=== PATIENT | male | born 1955 | race Caucasian/White ===

== ENCOUNTER 2023-07-13 12:42 | Outpatient (AMB) | payer MEDICARE, SELFPAY ==
--- NOTE | 2023-07-13 12:57 | A.OFFPC_ITS ---
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 Has been out of bp medication for almost a week. Just restarted it. 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 Allergies No Known Allergies Allergy (Verified 07/13/23 13:05) Medication List - Last Reconciled 07/13/23 by Lizett Wade PA-C amlodipine 5 mg PO DAILY lisinopril-hydrochlorothiazide 20-12.5 mg 1 tab PO BID metronidazole 0.75% appl topical DAILY simvastatin 40 mg PO BEDTIME Tobacco use date assessed: 07/13/23 Fall risk assessment: No Falls in past year Last assessed Fall Risk: 07/13/23 Dental Screening Dental Screen Date: 07/13/23 Did you have a dental visit in the last 12 months?: Yes Did you have a dental problem in the last 6 months where you did not have access to dental care?: No Was dental information given to patient?: Patient has dentist HPI MENDER HAND- General visit HPI Details Patient is a 67-year-old male with a significant past medical history of hypertension, hyperlipidemia and ongoing left shoulder pain who presents today for a follow up. He is transferring from [facility] and was last seen by myself in February. He does complain today of right lower leg swelling which started a couple of weeks ago. He states that his son was walking behind him and said that is like looked who is on the right compared to the left. He states it is somewhat painful if he pushes on his calf muscle and his posterior knee. Otherwise, no p ain. No recent trauma, surgery or illness. No family history or personal history of clots. He does not smoke. right leg swelling x 2 weeks. He states it feels tight. 51 cm on right left 45 cm CV: bp today is 138/84 and is on amlodipine 5 mg and hydrochlorothiazide/lisinopril 12.5 mg/20 mg twice a day. 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 Denies any chest pain or shortness a breath. His cholesterol has been well managed with simvastatin 40 mg. Musculoskeletal: Very frustrated with his ongoing left shoulder pain. He wants to be cleared to go back to work but his surgeon from [facility] told him that he can not lift more than 10 lb. His shoulder repair was about a year ago and since then he has been on [employer]. He states that this is hard for him financially. He also reports that they are discussing replacing his right knee. Derm: Rosacea as well-controlled with metronidazole cream Colonoscopy: Overdue AAA screen: Reports having this done at [facility], no results today. PSA: Up-to-date. Due in 6 months [facility] Medical History (Updated 07/13/23 @ 14:02 by Lizett Wade PA-C) Pain and swelling of right lower leg Severe obesity HTN (hypertension) Hypercholesterolemia Surgical History (Updated 07/13/23 @ 13:13 by Gillian Thompson CMA) History of knee surgery Family History (Updated 07/13/23 @ 13:12 by Gillian Thompson CMA) Mother Diabetes Social History (Updated 07/13/23 @ 13:11 by Gillian Thompson CMA) Housing: Other (mobile home) Patient Tobacco Use Status: Former Tobacco user Cigarette Packs Per Day: 1 Years Smoked: 25 e-Cigarette/Vaping Use: Never Used Second Hand Smoke Exposure: Yes service: No Current occupational status: other (Out on worku.sit comp) Cognitive needs: No Hearing needs: No Vision needs: No Questionnaire PHQ-9 Over the last 2 weeks, how often have you been bothered by any of the following problems? 1. Little interest or pleasure in doing things: not at all 2. Feeling down, depressed, or hopeless: several days 3. Trouble falling or staying asleep, or sleeping too much: several days 4. Feeling tired or having little energy: several days 5. Poor appetite or overeating: more than half the days 6. Feeling bad about yourself - or that you are a failure or have let yourself or your family down: several days 7. Trouble concentrating on things, such as reading the newspaper or watching television: not at all 8. Moving or speaking so slowly that other people could have noticed. Or the opposite - being so fidgety or restless that you have been moving around a lot more than usual: not at all 9. Thoughts that you would be better off or of hurting yourself in some way: not at all Total score: 6 Depression Screening Interpretation: Positive (Reports this is because he is currently out of work.) Depression Screening Follow-up: Follow-up Visit Requested and Declines treatment Depression Screening Done: Yes 89718 - PHQ-9 Billing: Yes Source: Developed by Drs. Terry Palm, Seema Caba, Kana Prasad and colleagues, with an educational wilfredo from [employer]. Thrive Questionnaire Date Thrive assessed: 07/13/23 I am a: Patient What is your living situation today?: I have a steady place to live Within the past 12 months, did the food you bought not last and you didn't have the money to get more?: Sometimes True Within the past 12 months, did you worry whether your food would run out before you got money to buy more?: Sometimes True Do you have trouble paying for medicines?: No Do you have trouble getting transportation to medical appointments?: No Do you have trouble paying your heating and electricity bill?: Yes Do you have trouble taking care of your child, family member or friend?: No Do you have trouble with day-to-day activities such as bathing, preparing meals, shopping, managing finances, etc.?: No Are you currently unemployed and looking for a job?: No Are you interested in more education?: No Please select the resources that you would like help with: None Currently or been in a relationship where the following occur: no concerns reported THRIVE Score: 3 AUDIT C Alcohol Use Questionnaire (AUDIT-C) 1. How often do you have a drink containing alcohol?: 2-3 times a week 2. How many drinks containing alcohol do you have on a typical day when you are drinking?: 1 or 2 3. How often do you have six or more drinks on one occasion?: Monthly Total Score: 5 Score Reviewed/Action Taken: Yes MAYELA-7 AMB Questionnaire MAYELA-7 Date MAYELA - 7 assessed: 07/13/23 Feeling nervous, anxious, or on edge: 2 = More than half the days Not being able to stop or control worryin = Several days Worrying too much about different things: 3 = Nearly every day Trouble relaxin = More than half the days Being so restless that it is hard to sit still: 3 = Nearly every day Becoming easily annoyed or irritable: 3 = Nearly every day Feeling afraid as if something awful might happen: 2 = More than half the days Total MAYELA-7 score (0-4 normal; 5-9 mild; 10-14 moderate; 15-21 severe): 16 Source: Developed by Drs. Terry Palm, Seema Caba, Kana Prasad and colleagues, with an educational wilfredo from [employer]. MAYELA-7 Assessment Billing MAYELA-7 Assessment Tool: MAYELA-7 Assessment 10757 Physical exam (Primary Care) Vital Signs: Last Vital Signs Temp 98.4 F 07/13/23 13:14 Pulse 81 07/13/23 13:14 Resp 16 07/13/23 13:14 BP 138/84 07/13/23 13:18 Pulse Ox 98 07/13/23 13:14 Oxygen Delivery Method Room Air 07/13/23 13:14 BMI result Body Mass Index 45.7 BMI Assessment/Plan discussion: High BMI High, discussed plan: lifestyle, weight reduction, dietary, physical activity and alcohol moderation Tobacco/Smoking Status: Tobacco use Status Tobacco use date assessed 07/13/23 07/13/23 13:18 Patient Tobacco Use Status Former Tobacco user 07/13/23 13:18 e-Cigarette/Vaping Use Never Used 07/13/23 13:18 PHQ-9: PHQ-9 Score PHQ-9: Total score 6 07/13/23 13:18 Depression Screening Interpretation: Positive (Reports this is because he is currently out of work.) Depression Screening Follow-up: Follow-up Visit Requested and Declines treatment Thrive Assessment: Date of Thrive Assessment Date Thrive assessed 07/13/23 07/13/23 13:18 Currently or been in a relationship where the following occur: no concerns reported Const Orientation/consciousness: patient oriented x3 HENMT Ears: hearing grossly normal bilaterally Neck Thyroid: Thyroid normal Lymphatic: no lymphadenopathy noted Resp Auscultation: clear to auscultation bilaterally Cardio Rate: regular rate Rhythm: regular rhythm Heart sounds: S1 normal heart sound present and S2 normal heart sound present GI Inspection: Yes normal to inspection Palpation (GI): Soft to palpation and Other GI palpation findings present (nontender, no cva tenderness) Auscultation: normoactive bowel sounds Rectal Exam - Male: Yes deferred Skin General skin exam: no rashes or lesions noted Neuro General: patient oriented x3, gait normal and no focal motor deficits Extrem Other: The right lower leg is 51 cm in circumference. There is tenderness to palpation over the right calf. There is increased erythema noted over the right lower leg that does juju. It is nontender. No increased warmth when compared to the left. The left calf is 45 cm. Nontender. Full range of motion of both extremities. The right posterior knee is tender to palpation. No ligamentous laxity noted. No discomfort with valgus or varus stress. Declined to take shoes off for exam Assessment and Plan Assessment & Plan (1) HTN (hypertension): Code(s): I10 - Essential (primary) hypertension Qualifiers: Hypertension type: primary hypertension Qualified Code(s): I10 - Essential (primary) hypertension Plan: We will continue current regimen today and refill. Patient reports having labs with Dr. Pollack's about a month ago that were WNL. I will have him follow up in 3-4 months. Sooner if needed. He is going to monitor his blood pressures at home. We did discuss diet changes. (2) Hypercholesterolemia: Code(s): E78.00 - Pure hypercholesterolemia, unspecified Plan: Continue simvastatin. We will monitor lipids and LFTs. (3) Pain and swelling of right lower leg: Code(s): M79.661 - Pain in right lower leg; M79.89 - Other specified soft tissue disorders Plan: Stat ultrasound ordered. Patient will be contacted later today with an appointment time and date. (4) Anxiety with depression: Code(s): F41.8 - Other specified anxiety disorders Plan: Believes that this is situational does not currently wish to treat this. We will follow up in a few months. He will follow up sooner if anything changes. Referral for colonoscopy placed. Advised patient to complete forms for records. Orders: Orders TSH reflex Free T4 Today E78.00 - Pure hypercholesterolemia, unspecified, I10 - Essential (primary) hypertension, M79.661 - Pain in right lower leg, M79.89 - Other specified soft tissue disorders US venous duplex LE RT Today M79.661 - Pain in right lower leg, M79.89 - Other specified soft tissue disorders Complete Blood Count Auto Diff Today E78.00 - Pure hypercholesterolemia, unspecified, I10 - Essential (primary) hypertension, M79.661 - Pain in right lower leg, M79.89 - Other specified soft tissue disorders Comprehensive Met. Panel Today E78.00 - Pure hypercholesterolemia, unspecified, I10 - Essential (primary) hypertension, M79.661 - Pain in right lower leg, M79.89 - Other specified soft tissue disorders Lipid Panel Today E78.00 - Pure hypercholesterolemia, unspecified, I10 - Essential (primary) hypertension, M79.661 - Pain in right lower leg, M79.89 - Other specified soft tissue disorders PSA, Ultra Sensitive Today E78.00 - Pure hypercholesterolemia, unspecified, I10 - Essential (primary) hypertension, M79.661 - Pain in right lower leg, M79.89 - Other specified soft tissue disorders, R06.09 - Other forms of dyspnea Referrals Gastroenterology Referral Z12.11 - Encounter for screening for malignant neoplasm of colon Coding Level of Care Code Est Pt Level 4 (68549) Complex EM visit Add On G2211 Diagnoses Primary hypertension I10 Hypertension type: primary hypertension Hypercholesterolemia E78.00 Pain and swelling of right lower leg M79.661; M79.89 Anxiety with depression F41.8 Additional Codes MAYELA-7 Assessment Billing - MAYELA-7 Assessment Tool: MAYELA-7 Assessment 13907 ([id number])
[2023-07-13 13:14] VITALS: BP 154/82; PULSE 81; RESP 16; TEMP 36.9; O2SAT 98; BMI 45.7
[2023-07-13 13:18] VITALS: BP 138/84
== END 2023-07-13 13:52 | disposition home or self-care (01) ==
PROVIDERS: PCP Physician Assistant; Visit Provider Physician Assistant
DX: I10 Essential (primary) hypertension (principal); E78.00 Pure hypercholesterolemia, unspecified; M79.661 Pain in right lower leg; M79.89 Other specified soft tissue disorders; F41.8 Other specified anxiety disorders
CPT/HCPCS: 99214; G2211

== ENCOUNTER 2023-07-15 09:01 | Outpatient (REF) | payer MEDICARE, SELFPAY ==
--- NOTE | ~2023-07-15 | US_ITS ---
EXAMINATION: US VENOUS ULTRASOUND WITH DOPPLER LOWER EXTREMITY, RIGHT CLINICAL INFORMATION: Right lower extremity pain. COMPARISON: None available. TECHNIQUE: Ultrasound of the deep veins is performed from the hip to the calf with compression sonography and color and pulse Doppler assessment. Spectral analysis with color-flow imaging is performed. Technically limited study due to edema and patient's body habitus. FINDINGS: There is normal venous compression and respiratory variation and augmented flow. The visualized common femoral vein, superficial femoral vein, profunda femoral vein, popliteal vein, and the imaged trifurcation region shows no evidence of deep venous thrombosis. If the patient's symptoms persist, followup ultrasound in 5 days 7 days might be of value to exclude proximal propagation from a non-visualized calf vein. US/US venous duplex LE RT IMPRESSION: No DVT demonstrated in the right lower extremity.
== END 2023-07-15 09:02 | disposition home or self-care (01) ==
LOC: HO.US 09:01
PROVIDERS: PCP Physician Assistant; Visit Provider Physician Assistant
DX: M79.661 Pain in right lower leg (principal); M79.89 Other specified soft tissue disorders
CPT/HCPCS: 93971

== ENCOUNTER 2023-12-29 08:42 | Outpatient (REF) | payer MEDICARE, SELFPAY ==
[2023-12-29 11:10] LABS: MANUAL DIFF FLAG NO
[2023-12-29 11:27] LABS: Basophils Absolute Auto 0.1 X10*3/uL (0.0-0.2); Basophils Percent Auto 1.2 % (0-2); Eosinophils Absolute Auto 0.1 X10*3/uL (0.0-0.4); Eosinophils Percent Auto 1.9 % (0-4); Hematocrit 43.4 % (42.0-52.0); Hemoglobin 14.1 g/dl (14.0-18.0); Imm Gran Abs Auto 0.03 X10*3/uL (0.00-0.03); Imm Gran Pct Auto 0.5 % (0.0-0.4); Lymphocytes Absolute Auto 1.8 X10*3/uL (1.2-4.9); Lymphocytes Percent Auto 27.6 % (20-40); Mean Corpuscular HGB Conc 32.5 g/dl (31.0-36.0); Mean Corpuscular Hemoglobin 29.3 pg (27.0-33.0); Mean Corpuscular Volume 90.2 fL (80.0-98.0); Mean Platelet Volume 10.1 fL (9.4-12.4); Monocytes Absolute Auto 0.6 X10*3/uL (0.1-1.2); Monocytes Percent Auto 8.7 % (2-11); Neutrophils Absolute Auto 3.9 x10*3/uL (2.0-8.3); Neutrophils Percent Auto 60.1 % (45-73); Platelet Count 275 X10*3/uL (160-400); Red Blood Count 4.81 X10*6/uL (4.60-5.80); Red Cell Distribution Width 12.8 % (11.0-16.0); White Blood Count 6.4 X10*3/uL (4.8-10.8)
[2023-12-29 11:48] LABS: Estimated Average Glucose 111 mg/dL; Hemoglobin A1C 138.9677 umol/L; Hemoglobin A1c % 5.5 % (<6.0); Total Hemoglobin (HGBA1C) 3780.8486 umol/L
[2023-12-29 12:05] LABS: Alanine Aminotransferase 31 U/L (0-40); Albumin Level 3.8 g/dL (3.5-5.0); Alkaline Phosphatase 86 U/L (39-117); Anion Gap 11 (12-20); Aspartate Amino Transferase 31 U/L (5-37); Bilirubin Total 0.4 mg/dL (0.0-1.0); Blood Urea Nitrogen 26 mg/dL (9-16); Calcium 9.1 mg/dL (8.4-10.2); Carbon Dioxide 30 mmol/L (22-29); Chloride 101 mmol/L (96-108); Cholesterol 162 mg/dL (<200); Estimated Glomerular Filt Rate > 60; Glucose Random 101 mg/dL (60-115); HDL Cholesterol 31 mg/dL (>40); LDL Cholesterol Calculated 107 mg/dL (<100); Potassium 4.4 mmol/L (3.3-5.1); Sodium 138 mmol/L (135-145); Total Protein 7.2 g/dL (6.5-8.0); Triglycerides 121 mg/dL (<150)
[2023-12-29 12:22] LABS: TSH reflex Free T4 0.82 uIU/mL (0.32-4.0)
[2023-12-29 14:23] LABS: Appearance Urine Clear; Color Urine Yellow; Glucose Urine UA Negative (Negative); Leukocyte Esterase Urine Negative (Negative); Nitrite Urine Negative (Negative); Specific Gravity - Urine 1.015 (1.005-1.025); Urine Blood Negative (Negative); Urine Ketones Negative (Negative); Urine Protein Negative (Neg-Trace)
== END 2023-12-29 08:43 | disposition home or self-care (01) ==
LOC: HO.WFDLDS 08:42
PROVIDERS: Visit Provider Physician Assistant
DX: E78.00 Pure hypercholesterolemia, unspecified (principal); I10 Essential (primary) hypertension; M79.661 Pain in right lower leg; M79.89 Other specified soft tissue disorders; N39.0 Urinary tract infection, site not specified; Z13.220 Encounter for screening for lipoid disorders; Z12.5 Encounter for screening for malignant neoplasm of prostate; Z13.1 Encounter for screening for diabetes mellitus
CPT/HCPCS: 36415; 80053; 80061; 81003; 83036; 84153; 84443; 85025; 99212

== ENCOUNTER 2023-12-29 10:03 | Outpatient (AMB) | payer MEDICARE, SELFPAY ==
--- NOTE | 2023-12-29 10:12 | MHC.PC.OV ---
Vital Signs 12/29/23 10:14 Height 5 ft 8 in Weight 290 lb BMI 44.1 BP 108/68 Blood Pressure Location Rt brachial Position Sitting Pulse 69 Pulse Source Pulse Oximeter Pulse Oximetry (%) 93 Oxygen Delivery Method Room Air Intake Visit Reasons: BP check Intake Note: Follow up htn. Went to ER on 12/18 for enlarged testicle. Right knee pain. Need Simvastatin refilled. Allergies No Known Allergies Allergy (Verified 07/13/23 13:05) Medication List - Last Reconciled 12/29/23 by Lizett Wade PA-C amlodipine 5 mg PO DAILY lisinopril-hydrochlorothiazide 20-12.5 mg 1 tab PO BID simvastatin 40 mg PO BEDTIME Tobacco use date assessed: 07/13/23 Dental Screening Dental Screen Date: 07/13/23 HPI BP check HPI Details Patient is a 67-year-old male with a significant past medical history of hypertension, hyperlipidemia and ongoing left shoulder pain who presents today initially for a blood pressure follow up but admits that on 12/18 he was diagnosed with a complicated UTI, abnormal CT of the pelvis and LIONEL. He was supposed to be admitted but signed AMA and was discharged on Levaquin and told to follow up outpatient to have his kidney function rechecked and get a dedicated scrotal ultrasound for the abnormality on CT. Since the hospital he has been feeling a lot better but his right testicle is still enlarged. He states it is no longer red or tender. No dysuria, increased urinary frequency or urgency. CV: bp today is 108/68 and is on amlodipine 5 mg and hydrochlorothiazide/lisinopril 12.5 mg/20 mg twice a day. His cholesterol has been well managed with simvastatin 40 mg.. Derm: Rosacea as well-controlled with metronidazole cream Colonoscopy: Overdue-was referred and scheduled in Feb 2024 AAA screen: Reports having this done at [facility], no results today. PSA: Due now [facility] Medical History (Updated 12/29/23 @ 10:44 by Lizett Wade PA-C) Pain and swelling of right lower leg Severe obesity HTN (hypertension) Hypercholesterolemia Surgical History (Updated 07/13/23 @ 13:13 by Gillian Thompson CMA) History of knee surgery Family History (Updated 07/13/23 @ 13:12 by Gillian Thompson CMA) Mother Diabetes Social History (Updated 07/13/23 @ 13:11 by LINDA Hauser Housing: Other (mobile home) Patient Tobacco Use Status: Former Tobacco user Cigarette Packs Per Day: 1 Years Smoked: 25 e-Cigarette/Vaping Use: Never Used Second Hand Smoke Exposure: Yes service: No Current occupational status: other (Out on workmans comp) Cognitive needs: No Hearing needs: No Vision needs: No Questionnaire PHQ-9 Over the last 2 weeks, how often have you been bothered by any of the following problems? 1. Little interest or pleasure in doing things: not at all 2. Feeling down, depressed, or hopeless: not at all 3. Trouble falling or staying asleep, or sleeping too much: not at all 4. Feeling tired or having little energy: not at all 5. Poor appetite or overeating: not at all 6. Feeling bad about yourself - or that you are a failure or have let yourself or your family down: not at all 7. Trouble concentrating on things, such as reading the newspaper or watching television: not at all 8. Moving or speaking so slowly that other people could have noticed. Or the opposite - being so fidgety or restless that you have been moving around a lot more than usual: not at all 9. Thoughts that you would be better off or of hurting yourself in some way: not at all Total score: 0 Source: Developed by Drs. Terry Palm, Seema Caba, Kana Prasad and colleagues, with an educational wilfredo from [employer]. Thrive Questionnaire Date Thrive assessed: 12/02/23 Within the past 12 months, did the food you bought not last and you didn't have the money to get more?: Often true Within the past 12 months, did you worry whether your food would run out before you got money to buy more?: Often true Do you have trouble paying for medicines?: Yes Do you have trouble getting transportation to medical appointments?: No Do you have trouble paying your heating and electricity bill?: No Do you have trouble taking care of your child, family member or friend?: No Do you have trouble with day-to-day activities such as bathing, preparing meals, shopping, managing finances, etc.?: No Are you currently unemployed and looking for a job?: No Are you interested in more education?: No Please select the resources that you would like help with: None Currently or been in a relationship where the following occur: I choose not to answer THRIVE Score: 2 MAYELA-7 AMB Questionnaire MAYELA-7 Date MAYELA - 7 assessed: 07/13/23 Source: Developed by Drs. Terry Palm, Seema Caba, Kana Prasad and colleagues, with an educational wilfredo from [employer]. Physical exam (Primary Care) Vital Signs: Last Vital Signs Pulse 69 12/29/23 10:14 BP 108/68 12/29/23 10:14 Pulse Ox 93 12/29/23 10:14 Oxygen Delivery Method Room Air 12/29/23 10:14 BMI result Body Mass Index 44.1 Tobacco/Smoking Status: Tobacco use Status Tobacco use date assessed 07/13/23 12/29/23 10:14 Patient Tobacco Use Status Former Tobacco user 12/29/23 10:14 e-Cigarette/Vaping Use Never Used 12/29/23 10:14 PHQ-9: PHQ-9 Score PHQ-9: Total score 0 12/29/23 10:14 Thrive Assessment: Date of Thrive Assessment Date Thrive assessed 12/02/23 12/29/23 10:14 Currently or been in a relationship where the following occur: I choose not to answer Const Orientation/consciousness: patient oriented x3 HENMT Ears: hearing grossly normal bilaterally Neck Thyroid: Thyroid normal Lymphatic: no lymphadenopathy noted Resp Auscultation: clear to auscultation bilaterally Cardio Rate: regular rate Rhythm: regular rhythm Heart sounds: S1 normal heart sound present and S2 normal heart sound present GI Inspection: Yes normal to inspection Palpation (GI): Soft to palpation and Other GI palpation findings present (nontender, no cva tenderness) Auscultation: normoactive bowel sounds General: Yes no CVA tenderness Back/Spine/Pelvis Back: no CVA tenderness Skin General skin exam: no rashes or lesions noted Neuro General: patient oriented x3, gait normal and no focal motor deficits Coding Level of Care Code Est Pt Level 4 (21352) Complex EM visit Add On G2211 Diagnoses Hypercholesterolemia E78.00 Primary hypertension I10 Hypertension type: primary hypertension Complicated UTI (urinary tract infection) N39.0 Testicular swelling, right N50.89 Assessment & Plan Assessment & Plan (1) Hypercholesterolemia: Code(s): E78.00 - Pure hypercholesterolemia, unspecified Category: Medical Plan: Lipids and LFTs ordered. We will follow up pending test results (2) HTN (hypertension): Code(s): I10 - Essential (primary) hypertension Category: Medical Qualifiers: Hypertension type: primary hypertension Qualified Code(s): I10 - Essential (primary) hypertension Plan: WNL. Continue current regimen (3) Complicated UTI (urinary tract infection): Code(s): N39.0 - Urinary tract infection, site not specified Category: Medical Plan: Currently asymptomatic. Completed Levaquin. Referral to urology. (4) Testicular swelling, right: Code(s): N50.89 - Other specified disorders of the male genital organs Category: Medical Plan: As above. Hydrocele noted on CT scan. Ultrasound ordered. Orders: Orders Hemoglobin A1c Today E78.00 - Pure hypercholesterolemia, unspecified, I10 - Essential (primary) hypertension, N39.0 - Urinary tract infection, site not specified UA CC w/rflx Micro + Cult Today E78.00 - Pure hypercholesterolemia, unspecified, I10 - Essential (primary) hypertension, N39.0 - Urinary tract infection, site not specified, Z13.220 - Encounter for screening for lipoid disorders Prostate Specific Antigen Scr Today E78.00 - Pure hypercholesterolemia, unspecified, I10 - Essential (primary) hypertension, N39.0 - Urinary tract infection, site not specified, Z01.89 - Encounter for other specified special examinations US scrotum Today N50.89 - Other specified disorders of the male genital organs Referrals Urology Referral N39.0 - Urinary tract infection, site not specified, N50.89 - Other specified disorders of the male genital organs
[2023-12-29 10:14] VITALS: BP 108/68; PULSE 69; O2SAT 93; BMI 44.1
== END 2023-12-29 13:06 | disposition home or self-care (01) ==
LOC: HO.HMCFM 10:04
PROVIDERS: PCP Physician Assistant; Visit Provider Physician Assistant
DX: E78.00 Pure hypercholesterolemia, unspecified (principal); I10 Essential (primary) hypertension; N39.0 Urinary tract infection, site not specified; N50.89 Other specified disorders of the male genital organs

== ENCOUNTER 2024-03-01 10:33 | Outpatient (REF) | payer MEDICARE, SELFPAY ==
[2024-03-01 16:45] LABS: Urine Cytology See Pathology rpt
== END 2024-03-01 10:34 | disposition home or self-care (01) ==
LOC: HO.LNP 10:33
PROVIDERS: PCP Physician Assistant; Visit Provider Urology
DX: R31.9 Hematuria, unspecified (principal); N39.0 Urinary tract infection, site not specified; Z13.9 Encounter for screening, unspecified; N50.89 Other specified disorders of the male genital organs
CPT/HCPCS: 81003; 87086; 88112; 99202

== ENCOUNTER 2024-03-01 10:33 | Outpatient (AMB) | payer MEDICARE, SELFPAY ==
--- NOTE | 2024-03-01 11:19 | MHC.OFFVIS ---
Intake Visit Reasons: complicated UTI Intake Note: Patient is present for Complicated UTI Blood Thinner: NONE Dietary Tech Required: No Allergies No Known Allergies Allergy (Verified 03/01/24 11:20) HPI Comments Details: hematuria- now gone ed- IV abx US scrotum - 01/24/24 levaquine # 10 renal US--fu office cysto [facility] Medical History Pain and swelling of right lower leg Severe obesity HTN (hypertension) Hypercholesterolemia Surgical History History of knee surgery Family History Mother Diabetes Social History Housing: Other (mobile home) Patient Tobacco Use Status: Former Tobacco user Cigarette Packs Per Day: 1 Years Smoked: 25 e-Cigarette/Vaping Use: Never Used Second Hand Smoke Exposure: Yes service: No Current occupational status: other (Out on workmans comp) Cognitive needs: No Hearing needs: No Vision needs: No Review of Systems Const All systems reviewed & are unremarkable except as noted in HPI and below Reports no additional complaints Eyes Reports no additional complaints ENT Reports no additional complaints Card Reports no additional complaints Resp Reports no additional complaints GI Reports no additional complaints Reports as per HPI Musc Reports no additional complaints Skin/Breast Reports system reviewed and no additional complaints, except as documented Neuro Reports no additional complaints Psych Reports no additional complaints Endo Reports no additional complaints Beck/Lymph Reports no additional complaints Aller/Immun Reports no additional complaints Results AMB Urinalysis, Automated UA Leukoctes 0 Kathia/uL Last Edit by Marie Dunn on 03/01/24 11:23 UA Nitrite Negative Last Edit by Marie Dunn on 03/01/24 11:23 UA Urobilinogen 3.5 mg/dL Last Edit by Marie Dunn on 03/01/24 11:23 UA Protein 6.0 mg/dL Last Edit by Marie Dunn on 03/01/24 11:23 UA pH 0 Last Edit by Marie Dunn on 03/01/24 11:23 UA Blood 0 Brijesh/uL Last Edit by Marie Dunn on 03/01/24 11:23 UA Specific [place] 1.020 Last Edit by Marie Shaun on 03/01/24 11:23 UA Ketone Negative Last Edit by Marie Shaun on 03/01/24 11:23 UA Bilirubin 0 mg/dL Last Edit by Marie Shaun on 03/01/24 11:23 UA Glucose 0 mg/dL Last Edit by Marie Shaun on 03/01/24 11:23 Results Reviewed Results Reviewed: Laboratory Last Values Urine pH (Auto) 0 03/01/24 11:21 Specific [place] (Auto) 1.020 03/01/24 11:21 Urine Protein (Auto) 6.0 mg/dL 03/01/24 11:21 Glucose (UA)(Auto) 0 mg/dL 03/01/24 11:21 Urine Ketones (Auto) Negative 03/01/24 11:21 Urine Blood (Auto) 0 Brijesh/uL 03/01/24 11:21 Urine Nitrite (Auto) Negative 03/01/24 11:21 Urine Bilirubin (Auto) 0 mg/dL 03/01/24 11:21 Urine Urobilinogen (Auto) 3.5 mg/dL 03/01/24 11:21 Leukocyte Esterase (Auto) 0 Kathia/uL 03/01/24 11:21 Assessment & Plan Assessment & Plan (1) Complicated UTI (urinary tract infection): Code(s): N39.0 - Urinary tract infection, site not specified Category: Medical (2) Hematuria: Code(s): R31.9 - Hematuria, unspecified Category: Medical Orders: Orders AMB Urinalysis Automated Today Z13.9 - Encounter for screening, unspecified US renal BI Today N39.0 - Urinary tract infection, site not specified, R31.9 - Hematuria, unspecified Urine Cytology Today R31.9 - Hematuria, unspecified Urine Culture Today N39.0 - Urinary tract infection, site not specified Medications: New levofloxacin 500 mg PO DAILY 10 tabs 0RF Coding Diagnoses Complicated UTI (urinary tract infection) N39.0 Hematuria R31.9
== END 2024-03-01 12:13 | disposition home or self-care (01) ==
PROVIDERS: PCP Physician Assistant; Visit Provider Urology
DX: Z13.9 Encounter for screening, unspecified (principal)

== ENCOUNTER 2024-04-19 13:17 | Outpatient (AMB) | payer MEDICARE, SELFPAY ==
--- NOTE | 2024-04-19 13:29 | A.OFFPC_ITS ---
Vital Signs 04/19/24 13:36 Height 5 ft 8 in Weight 302 lb BMI 45.9 BP 132/58 L Blood Pressure Location Lt brachial Position Sitting Respiration 16 Pulse 78 Pulse Source Pulse Oximeter Pulse Oximetry (%) 97 Oxygen Delivery Method Room Air Intake Visit Reasons: blood work/ultrasound Intake Note: Follow up lab results and ultrasound. Having a kidney ultrasound tomorrow ordered Urology. Continuity Tester Required: No Allergies No Known Allergies Allergy (Verified 04/19/24 13:32) Medication List - Last Reconciled 04/19/24 by Lizett Wade PA-C amlodipine 5 mg PO DAILY levofloxacin 500 mg PO DAILY lisinopril-hydrochlorothiazide 20-12.5 mg 1 tab PO BID simvastatin 40 mg PO BEDTIME Tobacco use date assessed: 07/13/23 Dental Screening Dental Screen Date: 07/13/23 HPI blood work/ultrasound HPI Details History of Present Illness The patient is a 68-year-old male presenting Today for a follow up. He has a significant past medical history of hypertension, hyperlipidemia and recently right testicular swelling. Urology: The patient reports that since a prior visit in December, there has been little progress in addressing his urinary problems. He states that his right testicle has remain enlarged. It is tender at times with compression otherwise is asymptomatic. He expresses frustration with the limited intervention and lack of clarity regarding his condition. The patient describes concerns about a lack of ejaculation and penile retraction, which are associated with persistent swelling of his right testicle. The swelling has been present, with no signs of increase or decrease in size. Earlier, there was an episode of bleeding upon urination, which resolved within a week. He reports no current abdominal pain or other significant symptoms. He is scheduled for an ultrasound tomorrow and on Tuesday has an appointment with Urology again to further discuss this. CV: Blood pressure today in the office is 130/60. He is compliant with his antihypertensive. Cholesterol is managed with simvastatin. No chest pain or shortness on breath. Colonoscopy: Overdue and this has been rescheduled twice now. Unable to go to [facility] due to insurance issues. He has not yet heard about when it was going to be re booked. Health Maintenance - Renal ultrasound scheduled for tomorro w followed by follow-up for interpr etation of results. - Blood pressure management is ongoing w ith current satisfactory levels (130/60 mmHg). - Scheduled for colonoscopy; previous ca ncellations due to provider availability. Social History Review of Systems - Genitourinary: Reports lack of ejacula tion, penile retraction, and history of urinary bleeding (resolved). Physical Exam General: Well developed, well nourished, in no acute distress. Appears stated age. Cardiac: RRR, no murmurs Lungs: clear, equal breath sounds Abdomen: soft, nontender, no CVA tenderness Extremities: no edema Neuro: alert, oriented x3, mood appropriate Plan - The patient will proceed with the ryan l ultrasound tomorrow, results to be discussed on the following Tuesday - Monitoring of blood pressure with cont inued management of hypertension. - Rescheduling and completion of the col onoscopy procedure as part of routine health maintenance. - Continue current medications. Follo w up in 4 months. Labs prior to appointment. - Follow-up appointment in four months o r sooner if further intervention becomes necessary. [facility] Medical History Pain and swelling of right lower leg Severe obesity HTN (hypertension) Hypercholesterolemia Surgical History History of knee surgery Family History Mother Diabetes Social History (Updated 04/19/24 @ 13:39 by Gillian Thompson CMA) Housing: Other (mobile home) Alcohol intake: current Patient Tobacco Use Status: Former Tobacco user Cigarette Packs Per Day: 1 Years Smoked: 25 e-Cigarette/Vaping Use: Never Used Second Hand Smoke Exposure: Yes service: No Current occupational status: other (Out on workmans comp) Cognitive needs: No Hearing needs: No Vision needs: No Questionnaire Thrive Questionnaire Date Thrive assessed: 12/02/23 I am a: Patient What is your living situation today?: I have a steady place to live Within the past 12 months, did the food you bought not last and you didn't have the money to get more?: Never true Within the past 12 months, did you worry whether your food would run out before you got money to buy more?: Never true Do you have trouble paying for medicines?: No Do you have trouble getting transportation to medical appointments?: No Do you have trouble paying your heating and electricity bill?: No Do you have trouble taking care of your child, family member or friend?: No Do you have trouble with day-to-day activities such as bathing, preparing meals, shopping, managing finances, etc.?: No Are you currently unemployed and looking for a job?: No Are you interested in more education?: No Please select the resources that you would like help with: None Currently or been in a relationship where the following occur: No concerns reported THRIVE Score: 0 MAYELA-7 AMB Questionnaire MAYELA-7 Date MAYELA - 7 assessed: 07/13/23 Source: Developed by Drs. Terry Palm, Seema Caba, Kana Prasad and colleagues, with an educational wilfredo from [employer]. Physical exam (Primary Care) Vital Signs: Last Vital Signs Pulse 78 04/19/24 13:36 Resp 16 04/19/24 13:36 BP 132/58 L 04/19/24 13:36 Pulse Ox 97 04/19/24 13:36 Oxygen Delivery Method Room Air 04/19/24 13:36 BMI result Body Mass Index 45.9 Tobacco/Smoking Status: Tobacco use Status Tobacco use date assessed 07/13/23 04/19/24 13:29 Patient Tobacco Use Status Former Tobacco user 04/19/24 13:39 e-Cigarette/Vaping Use Never Used 04/19/24 13:39 Thrive Assessment: Date of Thrive Assessment Date Thrive assessed 12/02/23 04/19/24 13:29 Currently or been in a relationship where the following occur: No concerns reported Coding Level of Care Code Est Pt Level 4 (78709) Complex EM visit Add On G2211 Diagnoses Hypercholesterolemia E78.00 Primary hypertension I10 Hypertension type: primary hypertension Testicular swelling, right N50.89 Assessment & Plan Assessment & Plan (1) Hypercholesterolemia: Code(s): E78.00 - Pure hypercholesterolemia, unspecified Category: Medical (2) HTN (hypertension): Code(s): I10 - Essential (primary) hypertension Category: Medical Qualifiers: Hypertension type: primary hypertension Qualified Code(s): I10 - Essential (primary) hypertension (3) Testicular swelling, right: Code(s): N50.89 - Other specified disorders of the male genital organs Category: Medical Plan . Orders: Orders Complete Blood Count Auto Diff Today E78.00 - Pure hypercholesterolemia, unspecified, I10 - Essential (primary) hypertension, N50.89 - Other specified disorders of the male genital organs Comprehensive [place]. Panel Fast Today E78.00 - Pure hypercholesterolemia, unspecified, I10 - Essential (primary) hypertension, N50.89 - Other specified disorders of the male genital organs Lipid Panel Today E78.00 - Pure hypercholesterolemia, unspecified, I10 - Essential (primary) hypertension, N50.89 - Other specified disorders of the male genital organs TSH reflex Free T4 Today E78.00 - Pure hypercholesterolemia, unspecified, I10 - Essential (primary) hypertension, N50.89 - Other specified disorders of the male genital organs
[2024-04-19 13:36] VITALS: BP 132/58; PULSE 78; RESP 16; O2SAT 97; BMI 45.9
== END 2024-04-19 14:05 | disposition home or self-care (01) ==
PROVIDERS: PCP Physician Assistant; Visit Provider Physician Assistant
DX: E78.00 Pure hypercholesterolemia, unspecified (principal); I10 Essential (primary) hypertension; N50.89 Other specified disorders of the male genital organs

== ENCOUNTER → 2024-04-19 13:17 | Outpatient (BNVA) | payer MEDICARE, SELFPAY | PROVIDERS: PCP Physician Assistant; Visit Provider Physician Assistant | DX: E78.00 Pure hypercholesterolemia, unspecified (principal); I10 Essential (primary) hypertension; N50.89 Other specified disorders of the male genital organs | CPT/HCPCS: 99212 ==

== ENCOUNTER 2024-04-26 09:04 | Outpatient (AMB) | payer MEDICARE, SELFPAY ==
--- NOTE | 2024-04-26 09:24 | MHC.OFFVIS ---
Intake Visit Reasons: cysto/US(set 04/18/24) Intake Note: Patient is present for Cystoscopy/US Urology Medication:NONE Antibiotic Allergy:NONE Blood Thinner:NONE Lot:[id number] Exp:06/01/2026 Bmet Required: No Allergies No Known Allergies Allergy (Verified 04/26/24 09:25) HPI Comments Details: 04/26/24-- 68-year-old male presenting with hematuria and testicular swelling. Approximately four weeks ago, he attended an emergency room visit due to blood in the urine, for which IV antibiotics were administered. No repeat episodes of hematuria have been reported since the initial incident. Swelling of the left testicle continues, without considerable reduction post-antibiotic therapy. Challenges with ejaculation have arisen, marked by reduced semen flow and retraction of the penis. His medical regimen includes medications for hypertension and hyperlipidemia. Further evaluations include a review of recent kidney and bladder ultrasounds to assess underlying causes. Urinary Symptoms Review - Initial hematuria, noted approximately one month ago, resolved following treatment with IV antibiotics. - Presenting with continued testicular swelling, unchanged post-antibiotic therapy. - Ejaculatory changes noted as dribbling without normal force, suggestive of potential prostate enlargement or obstruction. - Penile retraction described, potentially related to testicular swelling. Results - Ultrasound of the kidneys and bladder: No significant findings. - Cystoscopy: Bladder wall thickening observed; no tumors noted. 03/01/24--Will is a 68 year old male seen in the ED with hematuria- states now resolved. Received IV abx in the ED. US scrotum - 01/24/24- findings c/w right orchitis. Pt states swelling is persistent levaquin # 10 renal US--fu office cysto PFSH Medical History Pain and swelling of right lower leg Severe obesity HTN (hypertension) Hypercholesterolemia Surgical History History of knee surgery Family History Mother Diabetes Social History (Updated 04/19/24 @ 13:39 by Gillian Thompson CMA) Housing: Other (mobile home) Alcohol intake: current Patient Tobacco Use Status: Former Tobacco user Cigarette Packs Per Day: 1 Years Smoked: 25 e-Cigarette/Vaping Use: Never Used Second Hand Smoke Exposure: Yes service: No Current occupational status: other (Out on workmans comp) Cognitive needs: No Hearing needs: No Vision needs: No Office Procedures Cystoscopy Consent Discussed risk and benefit or proposed procedure with the patient. Information consent for procedure given to the patient. Discussed technical aspects, risks, benefits and alternatives in full. Addressed all of the patient's questions and concerns regarding the procedure. The patient demonstrated knowledge and understanding. They wish to proceed with this procedure. Preparation The patient was prepped in the usual manner. A entry level marketing representative was present and in the room. Genitalia was prepped with betadine solution in a sterile manner. Lidocaine Jelly 2% was placed into the urethra and 16Fr flexible Olympus cystoscope was inserted into the meatus after adequate lubrication. Procedure Time out per protocol performed. Bladder Inspection Bladder Inspection: The bladder was inspected in its entirety with utilization retroflexion displaying: Tumor(s): no suspicious bladder lesions visualized Trabeculation: Mild to Moderate with cellule changes Mucosal Erthema: NA Orifices: normal shape and position Urethra: normal Cystoscopy findings: prostatic urethra bilobar enlargement, bulbous urethra, no suspicious bladder lesions visualized [place] [id number] DISPOSABLE SCOPE URO-G FLEXIBLE SCOPE Procedure code (CPT) selection complete Office Meds lidocaine HCl 2 % mucosal jelly in applicator Performing Provider: Leonides Ledbetter MD Performing Location: [facility] [place] [facility] Administered by: Stan William LPN on 04/26/24 09:57 Dose Route Admin Location Dispensed Lot Number Expiration Date [facility] Compensation Consulting Manager 10 mL intra-urethral 20 mL ciprofloxacin HCl 500 mg tablet Performing Provider: Leonides Ledbetter MD Performing Location: [facility] [place] [facility] Administered by: Stan William LPN on 04/26/24 09:57 Dose Route Admin Location Dispensed Lot Number Expiration Date [place] Compensation Consulting Manager 500 mg PO 1 tab Results AMB Urinalysis, Automated UA Leukoctes 0 Kathia/uL Last Edit by LIZ Hines on 04/26/24 09:37 UA Nitrite Negative Last Edit by LIZ Hines on 04/26/24 09:37 UA Urobilinogen 3.5 mg/dL Last Edit by LIZ Hines on 04/26/24 09:37 UA Protein 15 mg/dL Last Edit [facility] on 04/26/24 09:37 UA pH 6.0 Last Edit by Terrance Ibrahim [facility] on 04/26/24 09:37 UA Blood 0 Brijesh/uL Last Edit by Terrance Ibrahim [facility] on 04/26/24 09:37 UA Specific [place] 1.015 Last Edit by Terrance Ibrahim [facility] on 04/26/24 09:37 UA Ketone Negative Last Edit by Terrance Ibrahim [facility] on 04/26/24 09:37 UA Bilirubin 0 mg/dL Last Edit by Terrance Ibrahim [facility] on 04/26/24 09:37 UA Glucose 0 mg/dL Last Edit by Terrance Ibrahim [facility] on 04/26/24 09:37 Results Reviewed Results Reviewed: Laboratory Last Values Urine pH (Auto) 6.0 04/26/24 09:36 Specific [place] (Auto) 1.015 04/26/24 09:36 Urine Protein (Auto) 15 mg/dL 04/26/24 09:36 Glucose (UA)(Auto) 0 mg/dL 04/26/24 09:36 Urine Ketones (Auto) Negative 04/26/24 09:36 Urine Blood (Auto) 0 Brijesh/uL 04/26/24 09:36 Urine Nitrite (Auto) Negative 04/26/24 09:36 Urine Bilirubin (Auto) 0 mg/dL 04/26/24 09:36 Urine Urobilinogen (Auto) 3.5 mg/dL 04/26/24 09:36 Leukocyte Esterase (Auto) 0 Kathia/uL 04/26/24 09:36 Assessment & Plan Assessment & Plan (1) Testicular swelling, right: Code(s): N50.89 - Other specified disorders of the male genital organs Category: Medical (2) Hydrocele: Code(s): N43.3 - Hydrocele, unspecified Category: Medical (3) Orchitis: Code(s): N45.2 - Orchitis Category: Medical Plan Plan - Begin prescribed medication for prostatic symptoms, take once daily with breakfast. - Plan to repeat scrotal ultrasound in two months to evaluate testicular swelling. - Monitor for any persistent or worsening symptoms, such as increased blood in urine, and seek medical attention if they occur. - Return to the urology clinic in three months for a follow-up appointment. - Contact the clinic if there are difficulties with the new medication or if symptoms worsen. Orders: Orders AMB Urinalysis Automated 04/26/24 Z13.9 - Encounter for screening, unspecified AMB Cystoscopy 04/26/24 R31.9 - Hematuria, unspecified US scrotum 2 Months N50.89 - Other specified disorders of the male genital organs, N43.3 - Hydrocele, unspecified, N45.2 - Orchitis Medications: New alfuzosin ER administer after the same meal each day 10 mg PO DAILY 30 tabs 4RF NS Patient Instructions: The patient had an opportunity to ask questions regarding treatment plan. The patient expressed understanding and agreement with the above treatment plan. The patient is aware they should contact our office by phone for worsening of their current condition or the appearance of new symptoms. Compliance is encouraged with any medications and followup testing that is ordered. It is a privilege to be allowed the opportunity to participate in the urologic care of your patient. If you have any questions or concerns regarding treatment for the above conditions please do not hesitate to contact me. The office telephone contact is [phone]. This note is constructed in part using voice recognition software. While every effort has been made to ensure accuracy burnisher and bumper errors may have been included. Yours sincerely, Leonides Ledbetter MD Scribe Plan - Not visible on output: Patient was informed and verbally consented to the use of an ambient scribe for clinic note documentation during this visit. Coding Level of Care Code Est Pt Level 4 (96167) Diagnoses Testicular swelling, right N50.89 Hydrocele N43.3 Orchitis N45.2 CPT Codes Cystoscopy - CPT: [id number] ([id number])
--- OUTSIDE RECORDS SUMMARY | 2024-04-26 10:03 | XMS_ITS | Clinical Summary ---
Author Organization [employer] Address [address] [place] [address] Care Team Providers Care Assistant Professor Of Theater Name Role Phone Unavailable Primary Care Provider Unavailabl e Allergies No known active allergies Medications lisinopril-hydr oCHLOROthiazide 20-12.5 MG tablet Take 2 tablets by mouth in the morning. 03/21/2023 Active simvastatin (Zocor) 20 MG tablet Take 20 mg by mouth at bedtime. 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 Social History Tobacco Use Types Packs/Day Years Used Date Smoking Tobacco: Former Cigarettes Q uit: 2004 Tobacco Cessation:Counseling Given: Not Answered Sex and Gender Information Value Date Recorded Sex Assigned at Male 04/06/2023 10:03 AM EST Legal Sex Male 10:00 AM EST Gender Identity Male 04/06/2023 10:03 AM EST Sexual Orientation Choose not to disclose 2023 10:03 AM EST Last Filed Vital Signs Vital Sign Reading Time Taken Comments Blood Pressure 130/76 05/02/2023 2:29 PM EDT Pulse - - Temperature 36.5 ??C (97.7 ??F) 05/02/2023 2:29 PM ED T Respiratory Rate - - Oxygen Saturation - - Inhaled Oxygen Concentration - - Weight - - Height - - Body Mass Index - - Plan of Treatment Health Maintenance Due Date Last Done Comments CT Colonography 1955 Colonoscopy 1955 Colorectal Cancer Screening 1955 Depression Screening 1955 FIT DNA/Cologuard 1955 FIT 1955 FOBT 1955 Lipid Panel 1955 SDOH Screening 1955 Sigmoidoscopy 1955 Alcohol/Substance Use Screening 1967 Hepatitis C Screening 08/13/1973 DTaP/Tdap/Td Vaccines (1 - Tdap) 08/13/1974 Pneumococcal Vaccine: 50+ Ye ars (1 of 1 - PCV) 08/13/2005 Zoster Vaccines (1 of 2) 08/13/2005 COVID-19 Vaccine (1 - 2023-2 5 season) 2023 Influenza Vaccine (#1) 2023 Tobacco Screening 05/01/2024 05/02/2023 RSV Patients and Pa tients Aged 60 years or older (1 - 1-dose 75+ series) 08/13/2030 HIB Vaccines Aged Out No longer eligi ble based on patient's age to complete this topic HPV Vaccines Aged Out No longer eligi ble based on patient's age to complete this topic Hepatitis A Vaccines Aged Out No long er eligible based on patient's age to complete this topic Hepatitis B Vaccines Aged Out No long er eligible based on patient's age to complete this topic IPV Vaccines Aged Out No longer eligi ble based on patient's age to complete this topic Meningococcal Vaccine Aged Out No dom alirio eligible based on patient's age to complete this topic RSV under 20 months Aged Out No longe r eligible based on patient's age to complete this topic Rotavirus Vaccines Aged Out No longer eligible based on patient's age to complete this topic Insurance [employer] MEDICARE REPLACEMENT EYE MED
== END 2024-04-26 10:38 | disposition home or self-care (01) ==
PROVIDERS: PCP Physician Assistant; Visit Provider Urology
DX: N50.89 Other specified disorders of the male genital organs (principal); N43.3 Hydrocele, unspecified; N45.2 Orchitis
CPT/HCPCS: 52000; 99214

== ENCOUNTER → 2024-04-26 09:04 | Outpatient (BNVA) | payer MEDICARE, SELFPAY | PROVIDERS: PCP Physician Assistant; Visit Provider Urology | DX: R31.9 Hematuria, unspecified (principal); N50.89 Other specified disorders of the male genital organs; N43.3 Hydrocele, unspecified; N45.2 Orchitis; Z13.9 Encounter for screening, unspecified | CPT/HCPCS: 52000; 81003; 99212 ==

== ENCOUNTER 2024-07-26 07:38 | Outpatient (AMB) | payer MEDICARE, SELFPAY ==
--- OUTSIDE RECORDS SUMMARY | 2024-07-26 07:40 | XMS_ITS | Clinical Summary ---
Author Organization [employer] Address [address] [place] [address] Care Team Providers Care Electrical Fitter Name Role Phone Unavailable Primary Care Provider [...] 1955 Sigmoidoscopy 1955 Alcohol/Substance Use Screening 1967 Tobacco Screening 1967 Hepatitis C Screening 08/13/1973 DTaP/Tdap/Td Vaccines (1 - Tdap) 08/13/1974 Hepatitis A Vaccines (1 of 2 - Risk 2-dose series) 08/13/1974 Hepatitis B Vaccines (1 of 3 - Risk 3-dose series) 2015 RSV Patients and Patients Aged 60 years or older (1 - Risk 60-74 years 1-dose series) 2015 Zoster Vaccines (3 of 3) 08/10/2020 06/15/2020, 02/21 COVID-19 Vaccine (3 - season) 2023 09/07/2020, 07/31/2020 Influenza Vaccine (Season Ended) 2024 12/17/2019, 11/27/2018, 01/24/2018, Additional history exists Pneumococcal Vaccine: 50+ Years Completed 05/16/2023 HIB Vaccines Aged Out No longer eligi ble based on patient's age to complete this topic HPV Vaccines Aged Out No longer eligi ble based on patient's age to complete this topic IPV Vaccines Aged Out No longer eligi ble based on patient's age to complete this topic Meningococcal B Vaccine Aged Out No l onger eligible based on patient's age to complete [...]
--- NOTE | 2024-07-26 08:11 | A.OFFVIS_ITS ---
Intake Visit Reasons: 3M follow up/ US Intake Note: Patient is present for 3 month follow up/US * Scrotum US 07/05 Urology Medication: Alfuzosin Antibiotic Allergy:NONE Blood Thinner:NONE Hotel Breakfast Attendant Required: No Accompanied by: Self / Same As Patient Allergies No Known Allergies Allergy (Verified 07/26/24 08:19) Medication List - Last Reconciled 07/26/24 by Leonides Ledbetter MD alfuzosin ER 10 mg PO DAILY NS amlodipine 5 mg PO DAILY amoxicillin-pot clavulanate 875-125 mg 1 tab PO BID levofloxacin 500 mg PO DAILY lisinopril-hydrochlorothiazide 20-12.5 mg 1 tab PO BID simvastatin 40 mg PO BEDTIME tadalafil 5 mg PO DAILY 90 days HPI Comments Details: 07/26/24-- History of Present Illness The patient is a 68-year-old male presenting with testicular swelling and lower urinary tract symptoms. He initially noted testicular swelling and hematuria over a year ago, for which he has undergone cystoscopy and imaging. The ultra sound demonstrated persistent swelling, primarily on the right testicle. Symptoms, including retrograde ejaculation, are noted, related to the current medication regimen which includes alfuzosin for Benign Prostatic Hyperplasia (BPH). He reports improvement but with persistent slight enlargement of the right testicle. His urinary flow has improved under medication, though AFP symptoms persist. His prior PSA value was 2.7, consistent with prostate enlargement. The patient reports improvement in symptoms following concerning infections anticipated to worsen urinary symptoms. Urinary Symptoms Review - Reduced urinary flow - Hesitancy in urination - Intermittent hematuria - Retrograde ejaculation - Residual swelling around the penis and scrotum - Medications: alfuzosin 10 mg daily for BPH Results - Ultrasound: Previous scrotal ultrasound showed improvement in swelling; recent results indicate persistent enlargement, especially of the right testicle. - Previous PSA: 2.7, indicating benign prostatic enlargement Discussion Notes I discussed with the patient his current condition of testicular swelling and BPH, including his treatment with alfuzosin and its side effect of retrograde ejaculation. I explained that while retrograde ejaculation is a side effect of alfuzosin, it does not lead to infection or impact the orgasm quality. Additionally, I informed him about the prescription of tadalafil for its dual benefit in treating BPH symptoms and erectile function. A follow-up plan, including another cystoscopy, was also discussed to further assess the urinary tract. We also discussed the potential continuation of antibiotic therapy to address any residual infection contributing to the testicular swelling. I will be monitoring the patient's response to the current medications and will reassess the need for further interventions, such as laser therapy or other procedures to decrease prostate size. The patient has been advised that there are no immediate concerns regarding infection from retrograde ejaculation and that his urinary symptoms should gradually improve with continued medication use. I provided counseling about regular monitoring and re-evaluation and answered all his questions. He consented to follow up with this treatment strategy. Plan The patient will continue with alfuzosin 10 mg daily and has been prescribed tadalafil 5 mg daily to address both BPH-related urinary symptoms and erectile function. An antibiotic course will be given to reduce testicular swelling. Follow-up cystoscopy is planned to assess urinary tract conditions. I discussed alternative treatments, including surgical intervention, depending on response and reevaluation outcomes. Consent was obtained for the proposed treatments, with full discussion on side effects, benefits, and expectations. Regular monitoring and adjustment of treatment will be implemented as necessary. Patient Instructions - Continue taking alfuzosin 10 mg once daily as prescribed. - Begin tadalafil 5 mg daily, which can improve both urination and erectile function. - Complete the full course of antibiotics as prescribed. - Monitor for any increase in urinary symptoms or pain; if symptoms worsen, contact the office. - Expect follow-up in about three months to review treatment progress. - Attend the scheduled cystoscopy for further evaluation. - Keep any appointments for prostate evaluation and monitoring as discussed. Patient was informed and verbally consented to the use of an ambient scribe for clinic note documentation during this visit. 04/26/24-- 68-year-old male presenting with hematuria and testicular swelling. Approximately four weeks ago, he attended an emergency room visit due to blood in the urine, for which IV antibiotics were administered. No repeat episodes of hematuria have been reported since the initial incident. Swelling of the left testicle continues, without considerable reduction post-antibiotic therapy. Challenges with ejaculation have arisen, marked by reduced semen flow and retraction of the penis. His medical regimen includes medications for hypertension and hyperlipidemia. Further evaluations include a review of recent kidney and bladder ultrasounds to assess underlying causes. Urinary Symptoms Review - Initial hematuria, noted approximately one month ago, resolved following treatment with IV antibiotics. - Presenting with continued testicular swelling, unchanged post-antibiotic therapy. - Ejaculatory changes noted as dribbling without normal force, suggestive of potential prostate enlargement or obstruction. - Penile retraction described, potentially related to testicular swelling. Results - Ultrasound of the kidneys and bladder: No significant findings. - Cystoscopy: Bladder wall thickening observed; no tumors noted. 03/01/24--Will is a 68 year old male seen in the ED with hematuria- states now resolved. Received IV abx in the ED. US scrotum - 01/24/24- findings c/w right orchitis. Pt states swelling is persistent levaquin # 10 renal US--fu office cysto PFSH Medical History Pain and swelling of right lower leg Severe obesity HTN (hypertension) Hypercholesterolemia Surgical History History of knee surgery Family History Mother Diabetes Social History Housing: Other (mobile home) Alcohol intake: current Patient Tobacco Use Status: Former Tobacco user Cigarette Packs Per Day: 1 Years Smoked: 25 e-Cigarette/Vaping Use: Never Used Second Hand Smoke Exposure: Yes service: No Current occupational status: other (Out on workmans comp) Cognitive needs: No Hearing needs: No Vision needs: No Review of Systems Const All systems reviewed & are unremarkable except as noted in HPI and below Reports no additional complaints Eyes Reports no additional complaints ENT Reports no additional complaints Card Reports no additional complaints Resp Reports no additional complaints GI Reports no additional complaints Reports as per HPI Musc Reports no additional complaints Skin/Breast Reports system reviewed and no additional complaints, except as documented Neuro Reports no additional complaints Psych Reports no additional complaints Endo Reports no additional complaints Beck/Lymph Reports no additional complaints Aller/Immun Reports no additional complaints Results AMB Urinalysis, Automated UA Leukoctes 0 Kathia/uL Last Edit by SMA Calixto on 07/26/24 08:21 UA Nitrite Last Edit by SMA Calixto on 07/26/24 08:21 UA Urobilinogen 0.2 mg/dL Last Edit by SMA Calixto on 07/26/24 08:21 UA Protein 15 mg/dL Last Edit by Santana Mercado, [facility] on 07/26/24 08:21 UA pH 6.0 Last Edit by Santana Mercado, [facility] on 07/26/24 08:21 UA Blood 0 Brijesh/uL Last Edit by Santana Mercado, [facility] on 07/26/24 08:21 UA Specific [place] 1.025 Last Edit by Santana Mercado, [facility] on 07/26/24 08:21 UA Ketone Last Edit by Santana Mercado, [facility] on 07/26/24 08:21 UA Bilirubin 0 mg/dL Last Edit by Santana Mercado, [facility] on 07/26/24 08:21 UA Glucose 0 mg/dL Last Edit by Santana Mercado [facility] on 07/26/24 08:21 Results Reviewed Results Reviewed: Laboratory Last Values Urine pH (Auto) 6.0 07/26/24 08:08 Specific [place] (Auto) 1.025 07/26/24 08:08 Urine Protein (Auto) 15 mg/dL 07/26/24 08:08 Glucose (UA)(Auto) 0 mg/dL 07/26/24 08:08 Urine Blood (Auto) 0 Brijesh/uL 07/26/24 08:08 Urine Bilirubin (Auto) 0 mg/dL 07/26/24 08:08 Urine Urobilinogen (Auto) 0.2 mg/dL 07/26/24 08:08 Leukocyte Esterase (Auto) 0 Kathia/uL 07/26/24 08:08 Assessment & Plan Assessment & Plan (1) Testicular swelling, right: Code(s): N50.89 - Other specified disorders of the male genital organs Category: Medical (2) Hydrocele: Code(s): N43.3 - Hydrocele, unspecified Category: Medical (3) Orchitis: Code(s): N45.2 - Orchitis Category: Medical Orders: Orders AMB Urinalysis Automated Today Z13.9 - Encounter for screening, unspecified Medications: New amoxicillin-pot clavulanate 875-125 mg 1 tab PO BID 14 tabs 0RF Patient Instructions: The patient had an opportunity to ask questions regarding treatment plan. The patient expressed understanding and agreement with the above treatment plan. The patient is aware they should contact our office by phone for worsening of their current condition or the appearance of new symptoms. Compliance is encouraged with any medications and followup testing that is ordered. It is a privilege to be allowed the opportunity to participate in the urologic care of your patient. If you have any questions or concerns regarding treatment for the above conditions please do not hesitate to contact me. The office telephone contact is [phone]. This note is constructed in part using voice recognition software. While every effort has been made to ensure accuracy straight edger errors may have been included. Yours sincerely, Leonides Ledbetter MD Scribe Plan - Not visible on output: Patient was informed and verbally consented to the use of an ambient scribe for clinic note documentation during this visit. Coding Level of Care Code Est Pt Level 4 (89817) Diagnoses Testicular swelling, right N50.89 Hydrocele N43.3 Orchitis N45.2
== END 2024-07-26 08:40 | disposition home or self-care (01) ==
LOC: HO.HUSH 07:39
PROVIDERS: PCP Physician Assistant; Visit Provider Urology
DX: Z13.9 Encounter for screening, unspecified (principal)

== ENCOUNTER → 2024-07-26 07:38 | Outpatient (BNVA) | payer MEDICARE, SELFPAY | PROVIDERS: PCP Physician Assistant; Visit Provider Urology | DX: N45.2 Orchitis (principal); N50.89 Other specified disorders of the male genital organs; N43.3 Hydrocele, unspecified | CPT/HCPCS: 81003 ==

== ENCOUNTER 2024-08-22 08:04 | Outpatient (AMB) | payer MEDICARE, SELFPAY ==
--- OUTSIDE RECORDS SUMMARY | 2024-08-22 08:06 | XMS_ITS | Clinical Summary ---
Author Organization [facility] Address [address] [place] [address] Care Team Providers Care Dental Services Director Name Role Phone Unavailable Primary Care Provider [...] PM EDT Pulse - - Temperature 36.5 C (97.7 F) 05/02/2023 2:29 PM EDT Respiratory Rate - - Oxygen Saturation - [...] of 3) 08/10/2020 06/15/2020, 02/21 COVID-19 Vaccine ( - season) 2023 09/07/2020, 07/31/2020 Influenza Vaccine [...]
--- NOTE | 2024-08-22 08:12 | A.OFFPC_ITS ---
Vital Signs 08/22/24 08:19 Height 5 ft 8 in Weight 303 lb BMI 46.1 BP 110/70 Blood Pressure Location Rt brachial Position Sitting Respiration 16 Pulse 82 Pulse Source Pulse Oximeter Temp 98.1 F Temp Source Oral Pulse Oximetry (%) 95 Oxygen Delivery Method Room Air Intake Visit Reasons: meds and labs Intake Note: Medication follow up. Filter Helper Required: No Allergies No Known Allergies Allergy (Verified 08/22/24 08:15) Medication List - Last Reconciled 08/22/24 by Lizett Wade PA-C alfuzosin ER 10 mg PO DAILY NS amlodipine 5 mg PO DAILY levofloxacin 500 mg PO DAILY lisinopril-hydrochlorothiazide 20-12.5 mg 1 tab PO BID simvastatin 40 mg PO BEDTIME tadalafil 5 mg PO DAILY 90 days Tobacco use date assessed: 08/22/24 Fall risk assessment: No Falls in past year Last assessed Fall Risk: 08/22/24 Dental Screening Dental Screen Date: 08/22/24 Did you have a dental visit in the last 12 months?: Yes Did you have a dental problem in the last 6 months where you did not have access to dental care?: No Was dental information given to patient?: Patient has dentist HPI meds and labs HPI Details Patient is a 69-year-old male who presents today for a follow up. Uro: He states that his right testicle is swollen and intermittently uncomfortable. He states that he has had a cystoscopy in an ultrasound which it was not overly helpful with a diagnosis. He states that he continues on antibiotics and management by Urology. He is frustrated because he feels like there is something wrong and this has been going on since December. Since being on antibiotics no hematuria but when he is off of it he develops the hematuria. GI: He states that for the last few months with the testicular pain and swelling he has also had some lower abdominal discomfort on the right side. States it is not really painful and he does not have any back pain/flank pain. No fever, chills, nausea, vomiting, diarrhea. No weight loss. At times he gets swelling in the pelvis area but attributes this to his testicle. CV: Blood pressure is 110/70. He is tolerating the amlodipine well. Denies any increased lower leg edema. He is on amlodipine and lisinopril/hydrochlorothiazide 20/12.5 mg b.i.d.. Cholesterol is managed with simvastatin 40 mg. No chest pain or shortness on breath. [facility] Medical History Pain and swelling of right lower leg Severe obesity HTN (hypertension) Hypercholesterolemia Surgical History History of knee surgery Family History Mother Diabetes Social History (Updated 08/22/24 @ 08:20 by Gillian Thompson CMA) Housing: Other (mobile home) Alcohol intake: current Patient Tobacco Use Status: Former Tobacco user Cigarette Packs Per Day: 1 Years Smoked: 25 e-Cigarette/Vaping Use: Never Used Second Hand Smoke Exposure: Yes service: No Current occupational status: other (Out on workmans comp) Cognitive needs: No Hearing needs: No Vision needs: No Questionnaire PHQ-9 Over the last 2 weeks, how often have you been bothered by any of the following problems? 1. Little interest or pleasure in doing things: not at all 2. Feeling down, depressed, or hopeless: not at all 3. Trouble falling or staying asleep, or sleeping too much: not at all 4. Feeling tired or having little energy: not at all 5. Poor appetite or overeating: not at all 6. Feeling bad about yourself - or that you are a failure or have let yourself or your family down: not at all 7. Trouble concentrating on things, such as reading the newspaper or watching television: not at all 8. Moving or speaking so slowly that other people could have noticed. Or the opposite - being so fidgety or restless that you have been moving around a lot m ore than usual: not at all 9. Thoughts that you would be better off or of hurting yourself in some way: not at all Total score: 0 Depression Screening Interpretation: Negative Depression Screening Done: Yes 30056 - PHQ-9 Billing: Yes Source: Developed by Drs. Terry Palm, Seema Caba, Kana Prasad and colleagues, with an educational wilfredo from [employer]. Thrive Questionnaire Date Thrive assessed: 03/29/24 I am a: Patient What is your living situation today?: I have a steady place to live Within the past 12 months, did the food you bought not last and you didn't have the money to get more?: Never true Within the past 12 months, did you worry whether your food would run out before you got money to buy more?: Never true Do you have trouble paying for medicines?: No Do you have trouble getting transportation to medical appointments?: No Do you have trouble paying your heating and electricity bill?: No Do you have trouble taking care of your child, family member or friend?: No Do you have trouble with day-to-day activities such as bathing, preparing meals, shopping, managing finances, etc.?: No Are you currently unemployed and looking for a job?: No Are you interested in more education?: No Please select the resources that you would like help with: None Currently or been in a relationship where the following occur: No concerns reported THRIVE Score: 0 AUDIT C Alcohol Use Questionnaire (AUDIT-C) 1. How often do you have a drink containing alcohol?: Monthly or less 2. How many drinks containing alcohol do you have on a typical day when you are drinking?: 1 or 2 3. How often do you have six or more drinks on one occasion?: Never Total Score: 1 MAYELA-7 AMB Questionnaire MAYELA-7 Date MAYELA - 7 assessed: 07/13/23 Feeling nervous, anxious, or on edge: 0 = Not at all Not being able to stop or control worryin = Not at all Worrying too much about different things: 0 = Not at all Trouble relaxin = Not at all Being so restless that it is hard to sit still: 0 = Not at all Becoming easily annoyed or irritable: 0 = Not at all Feeling afraid as if something awful might happen: 0 = Not at all Total MAYELA-7 score (0-4 normal; 5-9 mild; 10-14 moderate; 15-21 severe): 0 Source: Developed by Drs. Terry Palm, Seema Caba, Kana Prasad and colleagues, with an educational wilfredo from [employer] MAYELA-7 Assessment Billing MAYELA-7 Assessment Tool: MAYELA-7 Assessment 30367 Physical exam (Primary Care) Vital Signs: Last Vital Signs Temp 98.1 F 08/22/24 08:19 Pulse 82 08/22/24 08:19 Resp 16 08/22/24 08:19 BP 110/70 08/22/24 08:19 Pulse Ox 95 08/22/24 08:19 Oxygen Delivery Method Room Air 08/22/24 08:19 BMI result Body Mass Index 46.1 Tobacco/Smoking Status: Tobacco use Status Tobacco use date assessed 08/22/24 08/22/24 08:14 Patient Tobacco Use Status Former Tobacco user 08/22/24 08:20 e-Cigarette/Vaping Use Never Used 08/22/24 08:20 Depression Screening Interpretation: Negative Thrive Assessment: Date of Thrive Assessment Date Thrive assessed 03/29/24 08/22/24 08:12 Currently or been in a relationship where the following occur: No concerns reported Const Orientation/consciousness: patient oriented x3 HENMT Ears: hearing grossly normal bilaterally Neck Thyroid: Thyroid normal Lymphatic: no lymphadenopathy noted Resp Auscultation: clear to auscultation bilaterally Cardio Rate: regular rate Rhythm: regular rhythm Heart sounds: S1 normal heart sound present and S2 normal heart sound present GI Inspection: Yes normal to inspection Palpation (GI): Soft to palpation, Tenderness to palpation present (GI) suprapubicly and no guarding Auscultation: normoactive bowel sounds Rectal Exam - Male: Yes deferred Skin General skin exam: no rashes or lesions noted Neuro General: patient oriented x3, gait normal and no focal motor deficits Coding Level of Care Code Est Pt Level 4 (07241) Complex EM visit Add On G2211 Diagnoses Complicated UTI (urinary tract infection) N39.0 Hematuria R31.9 RLQ abdominal pain R10.31 Hypercholesterolemia E78.00 Primary hypertension I10 Hypertension type: primary hypertension Additional Codes PHQ-9 - 91676 - PHQ-9 Billing: Yes ([id number]) MAYELA-7 Assessment Billing - MAYELA-7 Assessment Tool: MAYELA-7 Assessment 79534 ([id number]) Assessment & Plan Assessment & Plan (1) Complicated UTI (urinary tract infection): Code(s): N39.0 - Urinary tract infection, site not specified Category: Medical Plan: Continue with antibiotics as ordered by Urology (2) Hematuria: Code(s): R31.9 - Hematuria, unspecified Category: Medical Plan: Currently resolved (3) RLQ abdominal pain: Code(s): R10.31 - Right lower quadrant pain Category: Medical Plan: CT abdomen and pelvis ordered. Labs ordered. We will follow up pending test results. He will follow up with me sooner if anything worsens or changes. (4) Hypercholesterolemia: Code(s): E78.00 - Pure hypercholesterolemia, unspecified Category: Medical Plan: Continue with simvastatin (5) HTN (hypertension): Code(s): I10 - Essential (primary) hypertension Category: Medical Qualifiers: Hypertension type: primary hypertension Qualified Code(s): I10 - Ess ential (primary) hypertension Plan: Well-controlled. Continue current regimen Orders: Orders Prostate Specific Antigen Scr Today Z01.89 - Encounter for other specified special examinations Lipid Panel Today E78.00 - Pure hypercholesterolemia, unspecified, I10 - Essential (primary) hypertension, N39.0 - Urinary tract infection, site not specified, R10.31 - Right lower quadrant pain, R31.9 - Hematuria, unspecified Comprehensive Met. Panel Today E78.00 - Pure hypercholesterolemia, unspecified, I10 - Essential (primary) hypertension, N39.0 - Urinary tract infection, site not specified, R10.31 - Right lower quadrant pain, R31.9 - Hematuria, unspecified Complete Blood Count Auto Diff Today E78.00 - Pure hypercholesterolemia, unspecified, I10 - Essential (primary) hypertension, N39.0 - Urinary tract infection, site not specified, R10.31 - Right lower quadrant pain, R31.9 - Hematuria, unspecified Hemoglobin A1c Today E78.00 - Pure hypercholesterolemia, unspecified, I10 - Essential (primary) hypertension, N39.0 - Urinary tract infection, site not specified, R10.31 - Right lower quadrant pain, R31.9 - Hematuria, unspecified, R73.01 - Impaired fasting glucose CT abdomen pelvis wo IV con Today N39.0 - Urinary tract infection, site not specified, R10.31 - Right lower quadrant pain, R31.9 - Hematuria, unspecified
[2024-08-22 08:19] VITALS: BP 110/70; PULSE 82; RESP 16; TEMP 36.7; O2SAT 95; BMI 46.1
== END 2024-08-22 08:45 | disposition home or self-care (01) ==
LOC: HO.HMCFM 08:05
PROVIDERS: PCP Physician Assistant; Visit Provider Physician Assistant
DX: N39.0 Urinary tract infection, site not specified (principal); R31.9 Hematuria, unspecified; R10.31 Right lower quadrant pain; E78.00 Pure hypercholesterolemia, unspecified; I10 Essential (primary) hypertension

== ENCOUNTER → 2024-08-22 08:04 | Outpatient (BNVA) | payer MEDICARE, SELFPAY | PROVIDERS: PCP Physician Assistant; Visit Provider Physician Assistant | DX: R10.31 Right lower quadrant pain (principal); N39.0 Urinary tract infection, site not specified; R31.9 Hematuria, unspecified; E78.00 Pure hypercholesterolemia, unspecified; I10 Essential (primary) hypertension | CPT/HCPCS: 96127; 99212 ==

== ENCOUNTER 2024-10-29 07:28 | Outpatient (AMB) | payer MEDICARE, SELFPAY ==
--- NOTE | 2024-10-29 07:28 | MHC.OFFVIS ---
Intake Visit Reasons: 3M follow up/ meds Intake Note: Patient is present for 3 month follow up Urology Medication: Alfuzosin,Tadalafil Antibiotic Allergy:NONE Blood Thinner:NONE Auditor Medical Claims Required: No Accompanied by: Self / Same As Patient Allergies No Known Allergies Allergy (Verified 10/29/24 07:29) HPI Comments Details: 10/29/24--Will is a 69-year-old male who presents for telehealth follow-up for BPH. History of complicated UTI and orchitis. He was seen last in the office on 07/26/2024 he is prescribed alfuzosin 10 mg daily and Cialis 5 mg daily. He states that his urinary symptoms are improved. Follow-up in 6 months 07/26/24--The patient is a 68-year-old male presenting with testicular swelling and lower urinary tract symptoms. He initially noted testicular swelling and hematuria over a year ago, for which he has undergone cystoscopy and imaging. The ultrasound demonstrated persistent swelling, primarily on the right testicle. Symptoms, including retrograde ejaculation, are noted, related to the current medication regimen which includes alfuzosin for Benign Prostatic Hyperplasia (BPH). He reports improvement but with persistent slight enlargement of the right testicle. His urinary flow has improved under medication, though AFP symptoms persist. His prior PSA value was 2.7, consistent with prostate enlargement. The patient reports improvement in symptoms following concerning infections anticipated to worsen urinary symptoms. Urinary Symptoms Review - Reduced urinary flow - Hesitancy in urination - Intermittent hematuria - Retrograde ejaculation - Residual swelling around the penis and scrotum - Medications: alfuzosin 10 mg daily for BPH Results - Ultrasound: Previous scrotal ultrasound showed improvement in swelling; recent results indicate persistent enlargement, especially of the right testicle. - Previous PSA: 2.7, indicating benign prostatic enlargement Plan The patient will continue with alfuzosin 10 mg daily and has been prescribed tadalafil 5 mg daily to address both BPH-related urinary symptoms and erectile function. An antibiotic course will be given to reduce testicular swelling. Follow-up cystoscopy is planned to assess urinary tract conditions. I discussed alternative treatments, including surgical intervention, depending on response and reevaluation outcomes. 04/26/24-- 68-year-old male presenting with hematuria and testicular swelling. Approximately four weeks ago, he attended an emergency room visit due to blood in the urine, for which IV antibiotics were administered. No repeat episodes of hematuria have been reported since the initial incident. Swelling of the left testicle continues, without considerable reduction post-antibiotic therapy. Challenges with ejaculation have arisen, marked by reduced semen flow and retraction of the penis. His medical regimen includes medications for hypertension and hyperlipidemia. Further evaluations include a review of recent kidney and bladder ultrasounds to assess underlying causes. Urinary Symptoms Review - Initial hematuria, noted approximately one month ago, resolved following treatment with IV antibiotics. - Presenting with continued testicular swelling, unchanged post-antibiotic therapy. - Ejaculatory changes noted as dribbling without normal force, suggestive of potential prostate enlargement or obstruction. - Penile retraction described, potentially related to testicular swelling. Results - Ultrasound of the kidneys and bladder: No significant findings. - Cystoscopy: Bladder wall thickening observed; no tumors noted. 03/01/24--Will is a 68 year old male seen in the ED with hematuria- states now resolved. Received IV abx in the ED. US scrotum - 01/24/24- findings c/w right orchitis. Pt states swelling is persistent levaquin # 10 renal US--fu office cysto PFSH Medical History Pain and swelling of right lower leg Severe obesity HTN (hypertension) Hypercholesterolemia Surgical History History of knee surgery Family History Mother Diabetes Social History Housing: Other (mobile home) Alcohol intake: current Patient Tobacco Use Status: Former Tobacco user Cigarette Packs Per Day: 1 Years Smoked: 25 e-Cigarette/Vaping Use: Never Used Second Hand Smoke Exposure: Yes service: No Current occupational status: other (Out on workmans comp) Cognitive needs: No Hearing needs: No Vision needs: No Review of Systems Const All systems reviewed & are unremarkable except as noted in HPI and below Reports no additional complaints Eyes Reports no additional complaints ENT Reports no additional complaints Card Reports no additional complaints Resp Reports no additional complaints GI Reports no additional complaints Reports as per HPI Musc Reports no additional complaints Skin/Breast Reports system reviewed and no additional complaints, except as documented Neuro Reports no additional complaints Psych Reports no additional complaints Endo Reports no additional complaints Beck/Lymph Reports no additional complaints Aller/Immun Reports no additional complaints Telehealth Telehealth Telehealth Platform: [facility] Location of provider rendering services: practice address Location of patient: address on file Patient Identification confirmed using: Name, : Yes Telehealth method: voice only Patient verbally consented to treatment: Yes Patient verbally consented to billing insurance company: Yes Patient informed of any privacy concerns related to visit: Yes Minutes spent on Phone/Video with Pt.: 13 Assessment & Plan Assessment & Plan (1) BPH loc w urin obs/LUTS: Code(s): N40.1 - Benign prostatic hyperplasia with lower urinary tract symptoms Category: Medical Plan Continue alfuzosin and daily Cialis, follow-up in 6 months, check urine and PVR Patient Instructions: The patient had an opportunity to ask questions regarding treatment plan. The patient expressed understanding and agreement with the above treatment plan. The patient is aware they should contact our office by phone for worsening of their current condition or the appearance of new symptoms. Compliance is encouraged with any medications and followup testing that is ordered. It is a privilege to be allowed the opportunity to participate in the urologic care of your patient. If you have any questions or concerns regarding treatment for the above conditions please do not hesitate to contact me. The office telephone contact is [phone]. This note is constructed in part using voice recognition software. While every effort has been made to ensure accuracy day haul youth supervisor errors may have been included. Yours sincerely, Loenides Ledbetter MD Coding Level of Care Code Tele Est Pt Level 3 (50516) Diagnoses BPH loc w urin obs/LUTS N40.1
--- OUTSIDE RECORDS SUMMARY | 2024-10-29 07:31 | XMS_ITS | Clinical Summary ---
Author Organization [employer] Address [address] [place] [address] Care Team Providers Care Carcass Washer Name Role Phone Unavailable Primary Care Provider [...] 06/15/2020, 02/21 COVID-19 Vaccine (3 - season) 2024 09/07/2020, 07/31/2020 Influenza Vaccine (#1) 2024 0, 11/27/2018, 01/24/2018, Additional history exists Pneumococcal Vaccine: [...]
== END 2024-10-29 10:04 | disposition home or self-care (01) ==
LOC: HO.HUSH 07:28
PROVIDERS: PCP Physician Assistant; Visit Provider Urology
DX: N40.1 Benign prostatic hyperplasia with lower urinary tract symptoms (principal)
CPT/HCPCS: 99213